=== PATIENT | male | born 1960 | race Caucasian/White ===

== ENCOUNTER 2023-07-05 16:24 | Inpatient (IN) | payer MEDICAID, OTHER ==
[~2023-07-05] VITALS: Ht 177.8 cm; Wt 135.6 kg
[~2023-07-05 16:24] MED LIST: ACET-3207 PO; ASPI-1444 PO; DOCU100C34 PO; FAMO20 PO; FLUO40CA PO; HEPA500018 SQ; INSU100V SQ; METF-1211 PO; OLAN5TAB52 PO; SIMV-260 PO; TAMS0.4C34 PO
[2023-07-05] MEDS ORDERED: OLANZapine 5 MG RAPDIS TABLET PO PRN (18:00)
[2023-07-05] MEDS ORDERED: ZOLPIDEM TARTRATE 10 MG TABLET PO PRN (18:00)
[2023-07-05] MEDS ORDERED: ACET-2247 PO (18:02)
[2023-07-05 19:33] LABS: BASOPHILS % (AUTO) 1.3 % (0.0-2.0); EOSINOPHILS % (AUTO) 2.8 % (1.0-6.0); HEMATOCRIT 38.9 % (41-53); LYMPHOCYTES % (AUTO) 19.8 % (22.0-44.0); MEAN CORPUSCULAR HEMOGLOBIN 29.9 pg (26.0-34.0); MEAN CORPUSCULAR HGB CONC 33.5 G/dL (31.0-37.0); MEAN CORPUSCULAR VOLUME 89 fL (80-100); MONOCYTES # (AUTO) 0.6 K/uL (0.1-1.0); MONOCYTES % (AUTO) 6.4 % (2.0-9.0); NEUTROPHILS # (AUTO) 7.1 K/uL (1.8-7.7); NEUTROPHILS % (AUTO) 69.7 % (40.0-70.0); PLATELET COUNT (AUTO) 351 K/uL (150-450); RED BLOOD CELL COUNT(AUTO) 4.35 MIL/uL (4.50-5.90); RED CELL DISTRIBUTION WIDTH 14.9 % (11.5-14.5); WHITE BLOOD COUNT (AUTO) 10.1 K/uL (4.5-11.0)
[2023-07-05 19:39] LABS: COVID AG,FIA SOURCE NASOPHARYNGEAL
[2023-07-05 19:43] LABS: ANION GAP 9 mmol/L (8-16); CARBON DIOXIDE 28 mmol/L (22-29); CHLORIDE 101 mmol/L (98-107); CREATININE 1.24 mg/dL (0.60-1.30); GLOMERULAR FILTR. RATE CALC 59 mL/min (>60); GLUCOSE,RANDOM 122 mg/dL (70-110); POTASSIUM 3.8 mmol/L (3.5-5.1); SODIUM SERUM 137 mmol/L (136-145); UREA NITROGEN, BLOOD 27 mg/dL (7-18)
[2023-07-05 19:49] LABS: ALANINE AMINOTRANSFERASE 127 U/L (12-78); ALBUMIN 3.8 g/dL (3.4-5.0); ALKALINE PHOSPHATASE 166 U/L (46-116); ASPARTATE AMINOTRANSFERASE 58 U/L (15-37); BILIRUBIN,TOTAL 0.4 mg/dL (0.1-1.0)
[2023-07-05 19:56] LABS: ALCOHOL, BLOOD (SERUM) < 3 mg/dL (0-10)
[2023-07-05 20:09] LABS: SARS-COV2 (COVID) ANTIGEN,FIA Negative (Negative)
[2023-07-05] MEDS: LORazepam 2 MG TABLET PO PRN (20:52)
[2023-07-05] MEDS ORDERED: SITA100 PO (22:35)
[2023-07-05 23:49] LABS: APPEARANCE,URINE CLEAR (CLEAR); BILIRUBIN,URINE NEGATIVE (NEGATIVE); COLOR,URINE LIGHT YELLOW (YELLOW); GLUCOSE, URINE (UA) >=1000 mg/dL (NEGATIVE); KETONES,URINE NEGATIVE (NEGATIVE); LEUKOCYTE ESTERASE ,URINE NEGATIVE (NEGATIVE); NITRATE,URINE NEGATIVE (NEGATIVE); OCCULT BLOOD,URINE NEGATIVE (NEGATIVE); PROTEIN,URINE NEGATIVE (NEGATIVE); SPECIFIC GRAVITIY, URINE 1.035 (1.003-1.030); UROBILINOGEN,URINE <=1.0 mg/dL (<=1.0)
[2023-07-05 23:56] LABS: ALCOHOL, URINE DRUG SCREEN NEGATIVE (NEGATIVE); AMPHET/METH SCREEN,URINE NEGATIVE (NEGATIVE); BARBITURATE SCREEN, URINE NEGATIVE (NEGATIVE); BENZODIAZEPINES SCREEN,URINE NEGATIVE (NEGATIVE); CANNABINOID SCREEN,URINE NEGATIVE (NEGATIVE); COCAINE SCREEN,URINE NEGATIVE (NEGATIVE); METHADONE SCREEN, URINE NEGATIVE (NEGATIVE); OPIATE SCREEN,URINE NEGATIVE (NEGATIVE); PHENCYCLIDINE SCREEN,URINE NEGATIVE (NEGATIVE)
[2023-07-06 00:09] LABS: BACTERIA,URINE None Seen /HPF (None Seen); RBC,URINE None Seen /HPF (0-2); WBC,URINE None Seen /HPF (0-5)
[2023-07-06 00:10] LABS: SQUAMOUS EPITHELIAL CELL,UR None Seen /LPF (None Seen)
[2023-07-06 01:00] VITALS: BP 102/82; PULSE 81; RESP 17; TEMP 97.2; O2SAT 95
[2023-07-06 01:16] LABS: GLUCOMETER DEV NAME(LOC) BV2S.; GLUCOSE,POINT OF CARE 147 MG/DL (70-110)
[2023-07-06 08:39] VITALS: BP 106/76; PULSE 75; RESP 19; TEMP 97.9; O2SAT 98
[2023-07-06] MEDS ORDERED: TUBERCULIN, PURIFIED PROTEIN DERIVATIVE 5 TU/0.1 ML SYRINGE ID ONE (10:45)
[2023-07-06] MEDS ORDERED: PALIPERIDONE PALMITATE 234 MG/1.5 ML SYRINGE IM ONE (10:45)
[2023-07-06] MEDS ORDERED: PROMETHAZINE HCL 25 MG TABLET PO PRN (10:45)
[2023-07-06] MEDS ORDERED: LOPERAMIDE HCL 2 MG CAPSULE PO PRN (10:45)
[2023-07-06] MEDS ORDERED: MAGNESIUM HYDROXIDE SUSPENSION 30 ML UDCUP PO PRN (10:45)
[2023-07-06] MEDS ORDERED: MAG HYDROX/AL HYDROX/SIMETH ES 30 ML SUSPENSION UDCUP PO PRN (10:45)
[2023-07-06] MEDS ORDERED: HydrOXYzine PAMOATE 50 MG CAPSULE PO PRN (10:45)
[2023-07-06] MEDS ORDERED: ACETAMINOPHEN 325 MG TABLET PO PRN (10:45)
[2023-07-06] MEDS ORDERED: GuaiFENesin/D-METHORPHAN [SUGAR-FREE] 200-20MG/10 ML SYRUP UDCUP PO PRN (10:45)
[2023-07-06] MEDS: THIAMINE 100 MG TABLET PO SCH (16:33)
[2023-07-06 17:43] VITALS: BP 105/76; PULSE 78; RESP 18; TEMP 98.2; O2SAT 98
[2023-07-06 20:43] VITALS: BP 113/68; PULSE 88; RESP 18; TEMP 98.3; O2SAT 95
[2023-07-06] MEDS: OLANZapine 5 MG RAPDIS TABLET PO SCH (20:58)
[2023-07-06] MEDS: MELATONIN 5 MG TABLET PO SCH (20:59)
[2023-07-07 08:18] LABS: HEMOGLOBIN A1C 7.3 % (3.8-5.6)
[2023-07-07 08:40] LABS: CHOLESTEROL 204 mg/dL (131-200); FREE T4 (FREE THYROXINE) 0.95 ng/dL (0.76-1.46); HDL CHOLESTEROL 34 mg/dL (40-60); THYROID STIMULATING HORMONE 0.49 uIU/mL (0.36-3.74); TRIGLYCERIDES 464 mg/dL (15-150)
[2023-07-07 08:55] VITALS: BP 116/73; PULSE 71; RESP 18; TEMP 98; O2SAT 93
[2023-07-07] MEDS: OMEGA-3/DHA/EPA/FISH OIL 1,000 MG CAPSULE PO SCH (09:00)
[2023-07-07] MEDS ORDERED: BuPROPion HCL XL 150 MG ER TABLET PO SCH (09:00)
[2023-07-07] MEDS: MULTIVITAMINS WITH MINERALS, THERAPEUTIC TABLET PO SCH (09:43)
[2023-07-07] MEDS: THIAMINE 100 MG TABLET PO SCH ×2 (09:44→17:12)
[2023-07-07] MEDS: FOLIC ACID 1 MG TABLET PO SCH (09:44)
[2023-07-07] MEDS: NALTREXONE HCL 50 MG TABLET PO SCH (09:44)
[2023-07-07] MEDS ORDERED: GLUCAGON,HUMAN RECOMBINANT 1 MG VIAL IM PRN (11:30)
[2023-07-07] MEDS: SitaGLIPtin PHOSPHATE 100 MG TABLET PO SCH (13:34)
[2023-07-07 16:26] LABS: GLUCOMETER DEV NAME(LOC) BV2S.; GLUCOSE,POINT OF CARE 117 MG/DL (70-110)
[2023-07-07] MEDS: MetFORMIN HCL 500 MG TABLET PO SCH (17:12)
[2023-07-07 20:22] VITALS: BP 108/60; PULSE 82; RESP 19; TEMP 97.6; O2SAT 98
[2023-07-07] MEDS: MELATONIN 5 MG TABLET PO SCH (21:54)
[2023-07-07] MEDS: OLANZapine 5 MG RAPDIS TABLET PO SCH (21:54)
[2023-07-07] MEDS: SIMVASTATIN 40 MG TABLET PO SCH (21:57)
[2023-07-07] MEDS: INSULIN LISPRO 100 UNITS/ML SQ PRN (22:07)
[2023-07-07 23:11] LABS: GLUCOMETER DEV NAME(LOC) BV2S.; GLUCOSE,POINT OF CARE 147 MG/DL (70-110)
[2023-07-08 06:11] LABS: GLUCOMETER DEV NAME(LOC) BV2S.; GLUCOSE,POINT OF CARE 133 MG/DL (70-110)
[2023-07-08] MEDS: MetFORMIN HCL 500 MG TABLET PO SCH ×2 (06:49→16:06)
[2023-07-08 08:32] VITALS: BP 119/64; PULSE 77; RESP 16; TEMP 97.7; O2SAT 97
[2023-07-08] MEDS: BuPROPion HCL XL 150 MG ER TABLET PO SCH (09:07)
[2023-07-08] MEDS: FOLIC ACID 1 MG TABLET PO SCH (09:07)
[2023-07-08] MEDS: OMEGA-3/DHA/EPA/FISH OIL 1,000 MG CAPSULE PO SCH (09:07)
[2023-07-08] MEDS: THIAMINE 100 MG TABLET PO SCH ×2 (09:07→16:06)
[2023-07-08] MEDS: MULTIVITAMINS WITH MINERALS, THERAPEUTIC TABLET PO SCH (09:08)
[2023-07-08] MEDS: NALTREXONE HCL 50 MG TABLET PO SCH (09:09)
[2023-07-08] MEDS: SitaGLIPtin PHOSPHATE 100 MG TABLET PO SCH (09:09)
[2023-07-08 11:46] LABS: GLUCOMETER DEV NAME(LOC) BV2S.; GLUCOSE,POINT OF CARE 117 MG/DL (70-110)
[2023-07-08 17:16] LABS: GLUCOMETER DEV NAME(LOC) BV2S.; GLUCOSE,POINT OF CARE 139 MG/DL (70-110)
[2023-07-08 20:46] VITALS: BP 108/76; PULSE 73; RESP 19; TEMP 98; O2SAT 95
[2023-07-08] MEDS: MELATONIN 5 MG TABLET PO SCH (22:15)
[2023-07-08] MEDS: OLANZapine 10 MG RAPDIS TABLET PO SCH (22:15)
[2023-07-08] MEDS: SIMVASTATIN 40 MG TABLET PO SCH (22:16)
[2023-07-09 06:27] LABS: GLUCOMETER DEV NAME(LOC) BV2S.; GLUCOSE,POINT OF CARE 142 MG/DL (70-110)
[2023-07-09] MEDS: MetFORMIN HCL 500 MG TABLET PO SCH ×2 (07:00→17:14)
[2023-07-09] MEDS: INSULIN LISPRO 100 UNITS/ML SQ PRN (07:02)
[2023-07-09 08:53] VITALS: BP 129/72; PULSE 71; RESP 17; TEMP 98.4; O2SAT 99
[2023-07-09] MEDS: THIAMINE 100 MG TABLET PO SCH ×2 (09:39→17:14)
[2023-07-09] MEDS: NALTREXONE HCL 50 MG TABLET PO SCH (09:39)
[2023-07-09] MEDS: SitaGLIPtin PHOSPHATE 100 MG TABLET PO SCH (09:39)
[2023-07-09] MEDS: FOLIC ACID 1 MG TABLET PO SCH (09:39)
[2023-07-09] MEDS: BuPROPion HCL XL 150 MG ER TABLET PO SCH (09:39)
[2023-07-09] MEDS: MULTIVITAMINS WITH MINERALS, THERAPEUTIC TABLET PO SCH (09:39)
[2023-07-09] MEDS: OMEGA-3/DHA/EPA/FISH OIL 1,000 MG CAPSULE PO SCH (09:40)
[2023-07-09 11:16] LABS: GLUCOMETER DEV NAME(LOC) BV2S.; GLUCOSE,POINT OF CARE 111 MG/DL (70-110)
[2023-07-09 16:42] LABS: GLUCOMETER DEV NAME(LOC) BV2S.; GLUCOSE,POINT OF CARE 124 MG/DL (70-110)
[2023-07-09 21:03] VITALS: BP 106/74; PULSE 65; RESP 17; TEMP 98.2; O2SAT 97
[2023-07-09] MEDS: OLANZapine 10 MG RAPDIS TABLET PO SCH (21:39)
[2023-07-09] MEDS: MELATONIN 5 MG TABLET PO SCH (21:39)
[2023-07-09] MEDS: SIMVASTATIN 40 MG TABLET PO SCH (21:39)
[2023-07-10 04:31] LABS: GLUCOMETER DEV NAME(LOC) BV2S.; GLUCOSE,POINT OF CARE 174 MG/DL (70-110)
[2023-07-10 06:26] LABS: GLUCOMETER DEV NAME(LOC) BV2S.; GLUCOSE,POINT OF CARE 144 MG/DL (70-110)
[2023-07-10] MEDS: MetFORMIN HCL 500 MG TABLET PO SCH ×2 (06:47→17:19)
[2023-07-10] MEDS: INSULIN LISPRO 100 UNITS/ML SQ PRN ×2 (06:47→21:17)
[2023-07-10] MEDS ORDERED: PALIPERIDONE PALMITATE 156 MG/ML SYRINGE IM ONE (09:00)
[2023-07-10 09:11] VITALS: BP 134/81; PULSE 95; RESP 20; TEMP 97.9; O2SAT 95
[2023-07-10] MEDS: MULTIVITAMINS WITH MINERALS, THERAPEUTIC TABLET PO SCH (09:13)
[2023-07-10] MEDS: OMEGA-3/DHA/EPA/FISH OIL 1,000 MG CAPSULE PO SCH (09:13)
[2023-07-10] MEDS: NALTREXONE HCL 50 MG TABLET PO SCH (09:13)
[2023-07-10] MEDS: FOLIC ACID 1 MG TABLET PO SCH (09:13)
[2023-07-10] MEDS: THIAMINE 100 MG TABLET PO SCH ×2 (09:14→17:19)
[2023-07-10] MEDS: BuPROPion HCL XL 150 MG ER TABLET PO SCH (09:14)
[2023-07-10] MEDS: SitaGLIPtin PHOSPHATE 100 MG TABLET PO SCH (09:14)
[2023-07-10 15:21] LABS: GLUCOMETER DEV NAME(LOC) BV2S.; GLUCOSE,POINT OF CARE 100 MG/DL (70-110)
[2023-07-10 20:00] VITALS: BP 114/69; PULSE 83; RESP 18; TEMP 97.8; O2SAT 97
[2023-07-10 20:41] LABS: GLUCOMETER DEV NAME(LOC) BV2S.; GLUCOSE,POINT OF CARE 105 MG/DL (70-110)
[2023-07-10] MEDS: SIMVASTATIN 40 MG TABLET PO SCH (21:07)
[2023-07-10] MEDS: MELATONIN 5 MG TABLET PO SCH (21:08)
[2023-07-10] MEDS: OLANZapine 10 MG RAPDIS TABLET PO SCH (21:08)
[2023-07-10 21:51] LABS: GLUCOMETER DEV NAME(LOC) BV2S.; GLUCOSE,POINT OF CARE 156 MG/DL (70-110)
[2023-07-11 06:27] LABS: GLUCOMETER DEV NAME(LOC) BV2S.; GLUCOSE,POINT OF CARE 322 MG/DL (70-110)
[2023-07-11] MEDS: MetFORMIN HCL 500 MG TABLET PO SCH ×2 (06:53→16:12)
[2023-07-11] MEDS: INSULIN LISPRO 100 UNITS/ML SQ PRN (06:53)
[2023-07-11 08:49] VITALS: BP 136/78; PULSE 68; RESP 19; TEMP 97.9; O2SAT 94
[2023-07-11] MEDS: OMEGA-3/DHA/EPA/FISH OIL 1,000 MG CAPSULE PO SCH (09:01)
[2023-07-11] MEDS: MULTIVITAMINS WITH MINERALS, THERAPEUTIC TABLET PO SCH (09:01)
[2023-07-11] MEDS: SitaGLIPtin PHOSPHATE 100 MG TABLET PO SCH (09:01)
[2023-07-11] MEDS: THIAMINE 100 MG TABLET PO SCH ×2 (09:01→16:12)
[2023-07-11] MEDS: BuPROPion HCL XL 150 MG ER TABLET PO SCH (09:01)
[2023-07-11] MEDS: FOLIC ACID 1 MG TABLET PO SCH (09:01)
[2023-07-11] MEDS: NALTREXONE HCL 50 MG TABLET PO SCH (09:03)
[2023-07-11 11:26] LABS: GLUCOMETER DEV NAME(LOC) BV2S.; GLUCOSE,POINT OF CARE 115 MG/DL (70-110)
[2023-07-11 16:45] LABS: GLUCOMETER DEV NAME(LOC) BV2S.; GLUCOSE,POINT OF CARE 124 MG/DL (70-110)
[2023-07-11] MEDS: SIMVASTATIN 40 MG TABLET PO SCH (20:15)
[2023-07-11] MEDS: OLANZapine 10 MG RAPDIS TABLET PO SCH (20:15)
[2023-07-11] MEDS: MELATONIN 5 MG TABLET PO SCH (20:46)
[2023-07-11 21:06] LABS: GLUCOMETER DEV NAME(LOC) BV2S.; GLUCOSE,POINT OF CARE 128 MG/DL (70-110)
[2023-07-11 21:34] VITALS: BP 126/88; PULSE 82; RESP 19; TEMP 98; O2SAT 92
[2023-07-12] VITALS (7 sets, daily range): BP systolic 115–149; BP diastolic 64–79; PULSE 66–99; RESP 17–18; TEMP 97.3–98.2; O2SAT 96–98
[2023-07-12] MEDS: MetFORMIN HCL 500 MG TABLET PO SCH ×2 (06:47→16:58)
[2023-07-12] MEDS: INSULIN LISPRO 100 UNITS/ML SQ PRN ×3 (06:48→20:56)
[2023-07-12] MEDS: FOLIC ACID 1 MG TABLET PO SCH (08:22)
[2023-07-12] MEDS: MULTIVITAMINS WITH MINERALS, THERAPEUTIC TABLET PO SCH (08:22)
[2023-07-12] MEDS: OMEGA-3/DHA/EPA/FISH OIL 1,000 MG CAPSULE PO SCH (08:22)
[2023-07-12] MEDS: NALTREXONE HCL 50 MG TABLET PO SCH (08:23)
[2023-07-12] MEDS: SitaGLIPtin PHOSPHATE 100 MG TABLET PO SCH (08:23)
[2023-07-12] MEDS: BuPROPion HCL XL 150 MG ER TABLET PO SCH (08:23)
[2023-07-12] MEDS: THIAMINE 100 MG TABLET PO SCH ×2 (08:23→16:58)
[2023-07-12 10:01] LABS: GLUCOMETER DEV NAME(LOC) BV2S.; GLUCOSE,POINT OF CARE 205 MG/DL (70-110)
[2023-07-12 13:52] LABS: GLUCOMETER DEV NAME(LOC) BV2S.; GLUCOSE,POINT OF CARE 154 MG/DL (70-110)
[2023-07-12] MEDS ORDERED: OMEG-135 PO (15:37)
[2023-07-12] MEDS ORDERED: NALT50TA PO (15:37)
[2023-07-12] MEDS ORDERED: MELA5TAB40 PO (15:37)
[2023-07-12] MEDS ORDERED: BUPR-49 PO (15:37)
[2023-07-12] MEDS ORDERED: OLAN10TA26 PO (15:37)
[2023-07-12] MEDS ORDERED: METHYL SALICYLATE/MENTHOL 85 GM CREAM TP PRN (15:45)
[2023-07-12 16:42] LABS: GLUCOMETER DEV NAME(LOC) BV2S.; GLUCOSE,POINT OF CARE 108 MG/DL (70-110)
[2023-07-12] MEDS: LORazepam 2 MG TABLET PO PRN (17:22)
[2023-07-12 20:36] LABS: GLUCOMETER DEV NAME(LOC) BV2S.; GLUCOSE,POINT OF CARE 143 MG/DL (70-110)
[2023-07-12] MEDS: MELATONIN 5 MG TABLET PO SCH (20:45)
[2023-07-12] MEDS: OLANZapine 10 MG RAPDIS TABLET PO SCH (20:45)
[2023-07-12] MEDS: SIMVASTATIN 40 MG TABLET PO SCH (20:46)
[2023-07-13 03:06] LABS: HEPATITIS A ANTIBODY IGM Negative (Negative); HEPATITIS B CORE IGM Negative (Negative); HEPATITIS C AB (EIA) Non Reactive (Non Reactive)
[2023-07-13 03:30] VITALS: BP 135/94; PULSE 102; RESP 18; TEMP 98
[2023-07-13] MEDS: MetFORMIN HCL 500 MG TABLET PO SCH (06:22)
[2023-07-13 06:56] LABS: GLUCOMETER DEV NAME(LOC) BV2S.; GLUCOSE,POINT OF CARE 122 MG/DL (70-110)
[2023-07-13 08:54] VITALS: BP 144/87; PULSE 96; RESP 18; TEMP 98.9; O2SAT 97
[2023-07-13] MEDS: THIAMINE 100 MG TABLET PO SCH (09:08)
[2023-07-13] MEDS: FOLIC ACID 1 MG TABLET PO SCH (09:08)
[2023-07-13] MEDS: BuPROPion HCL XL 150 MG ER TABLET PO SCH (09:08)
[2023-07-13] MEDS: MULTIVITAMINS WITH MINERALS, THERAPEUTIC TABLET PO SCH (09:08)
[2023-07-13] MEDS: OMEGA-3/DHA/EPA/FISH OIL 1,000 MG CAPSULE PO SCH (09:08)
[2023-07-13] MEDS: NALTREXONE HCL 50 MG TABLET PO SCH (09:08)
[2023-07-13] MEDS: SitaGLIPtin PHOSPHATE 100 MG TABLET PO SCH (09:08)
[2023-07-13 11:31] LABS: GLUCOMETER DEV NAME(LOC) BV2S.; GLUCOSE,POINT OF CARE 126 MG/DL (70-110)
== END 2023-07-13 14:54 | disposition home or self-care (01) | DRG 750 ==
LOC: EMS 16:24 → B2S 22:58
PROVIDERS: ADMIT Psychiatry & Neurology Psychiatry; ATTEND Psychiatry & Neurology Psychiatry
DX: F25.9 Schizoaffective disorder, unspecified (principal); I50.9 Heart failure, unspecified; R45.850 Homicidal ideations; R45.851 Suicidal ideations; I11.0 Hypertensive heart disease with heart failure; E11.9 Type 2 diabetes mellitus without complications; F17.200 Nicotine dependence, unspecified, uncomplicated; Z20.822 Contact with and (suspected) exposure to COVID-19; F41.0 Panic disorder [episodic paroxysmal anxiety]; F60.0 Paranoid personality disorder; J44.9 Chronic obstructive pulmonary disease, unspecified; N40.0 Benign prostatic hyperplasia without lower urinary tract symptoms; Z55.9 Problems related to education and literacy, unspecified; Z56.0 Unemployment, unspecified; Z59.9 Problem related to housing and economic circumstances, unspecified; Z63.9 Problem related to primary support group, unspecified; Z65.3 Problems related to other legal circumstances; Z91.199 Patient's noncompliance with other medical treatment and regimen due to unspecified reason
CPT/HCPCS: 80053; 80061; 80074; 80307; 81001; 82140; 82962; 83036; 84439; 84443; 85025; 86592; 99285; G0480; Q9967

== ENCOUNTER 2023-07-13 00:27 | Emergency (ER) | payer MEDICAID ==
[~2023-07-13] VITALS: Ht 175.3 cm; Wt 370.0 kg
[~2023-07-13 00:27] MED LIST changes: +ACET-2247 PO; -ACET-3207 PO; +BUPR-49 PO; -DOCU100C34 PO; -HEPA500018 SQ; -INSU100V SQ; +MELA5TAB40 PO; -METF-1211 PO; +NALT50TA PO; +OLAN10TA26 PO; -OLAN5TAB52 PO; +OMEG-135 PO; +SITA100 PO; -TAMS0.4C34 PO
[2023-07-13 00:59] VITALS: TEMP 98.6
[2023-07-13] MEDS ORDERED: IBUPROFEN 400 MG TABLET PO ONE (02:15)
[2023-07-13 03:01] VITALS: BP 130/93; PULSE 107; RESP 20
== END 2023-07-13 03:10 | disposition home or self-care (01) ==
LOC: EMS 00:29
DX: S80.02XA Contusion of left knee, initial encounter (principal); F41.9 Anxiety disorder, unspecified; F31.9 Bipolar disorder, unspecified; E11.9 Type 2 diabetes mellitus without complications; I11.0 Hypertensive heart disease with heart failure; I50.9 Heart failure, unspecified; J44.9 Chronic obstructive pulmonary disease, unspecified; F20.9 Schizophrenia, unspecified; F15.90 Other stimulant use, unspecified, uncomplicated; X58.XXXA Exposure to other specified factors, initial encounter; Y93.89 Activity, other specified; Y92.89 Other specified places as the place of occurrence of the external cause; Y99.8 Other external cause status
CPT/HCPCS: 82962; 99283

== ENCOUNTER 2023-07-21 13:34 | Emergency (ER) | payer MEDICAID ==
[~2023-07-21] VITALS: Ht 170.2 cm; Wt 140.9 kg
[~2023-07-21 13:34] MED LIST changes: -FLUO40CA PO
[2023-07-21 13:37] VITALS: TEMP 98.4
[2023-07-21] MEDS ORDERED: TAMS0.4C34 PO (13:43)
[2023-07-21] MEDS ORDERED: CEPH500C2 PO (13:43)
[2023-07-21] MEDS ORDERED: FURO40TA5 PO (13:43)
[2023-07-21] MEDS ORDERED: CARB-290 AU (13:43)
[2023-07-21] MEDS ORDERED: EMPA10TA3 PO (13:43)
[2023-07-21] MEDS ORDERED: ACET-66 PO (13:43)
[2023-07-21] MEDS ORDERED: ALBU18HF12 IH (13:43)
[2023-07-21] MEDS ORDERED: BLOO-1103 IH (13:43)
[2023-07-21] MEDS ORDERED: GABA-1181 PO (13:43)
[2023-07-21] MEDS ORDERED: CLOP75TA32 PO (13:43)
[2023-07-21] MEDS ORDERED: ATOR40TA71 PO (13:43)
[2023-07-21] MEDS ORDERED: METF-446 PO (13:43)
[2023-07-21] MEDS ORDERED: LISI10TA24 PO (13:43)
[2023-07-21] MEDS ORDERED: METO-408 PO (13:43)
[2023-07-21] MEDS ORDERED: POTA-204 PO (13:43)
[2023-07-21] MEDS ORDERED: INSULIN SQ (13:43)
[2023-07-21 15:27] LABS: BASOPHILS % (AUTO) 1.1 % (0.0-2.0); EOSINOPHILS % (AUTO) 3.4 % (1.0-6.0); HEMOGLOBIN 12.1 g/dL (13.5-17.5); LYMPHOCYTES # (AUTO) 1.4 K/uL (1.0-4.8); MEAN CORPUSCULAR HEMOGLOBIN 29.7 pg (26.0-34.0); MEAN CORPUSCULAR HGB CONC 33.6 G/dL (31.0-37.0); MEAN CORPUSCULAR VOLUME 88 fL (80-100); MONOCYTES # (AUTO) 0.6 K/uL (0.1-1.0); NEUTROPHILS # (AUTO) 5.4 K/uL (1.8-7.7); NEUTROPHILS % (AUTO) 69.5 % (40.0-70.0); PLATELET COUNT (AUTO) 292 K/uL (150-450); RED BLOOD CELL COUNT(AUTO) 4.08 MIL/uL (4.50-5.90); RED CELL DISTRIBUTION WIDTH 14.5 % (11.5-14.5); WHITE BLOOD COUNT (AUTO) 7.8 K/uL (4.5-11.0)
[2023-07-21] MEDS ORDERED: ONDANSETRON HCL 4 MG/2 ML VIAL IVP ONE (15:45)
[2023-07-21] MEDS ORDERED: KETOROLAC TROMETHAMINE 30 MG/ML VIAL IVP ONE (15:45)
[2023-07-21] MEDS ORDERED: ACETAMINOPHEN 500 MG TABLET PO ONE (15:45)
[2023-07-21 15:56] LABS: CALCIUM, TOTAL 9.6 mg/dL (8.8-10.5); CREATININE 1.25 mg/dL (0.60-1.30); POTASSIUM 4.3 mmol/L (3.5-5.1)
[2023-07-21 16:02] LABS: ALBUMIN 3.3 g/dL (3.4-5.0); BILIRUBIN,TOTAL 0.3 mg/dL (0.1-1.0); TOTAL PROTEIN, SERUM 6.9 g/dL (6.4-8.2)
[2023-07-21] MEDS ORDERED: IOHEXOL 350 MG/ML 100 ML VIAL ONE (16:02)
[2023-07-21] MEDS ORDERED: SODIUM CHLORIDE 0.9% 100 ML ONE (16:02)
[2023-07-21 17:53] VITALS: BP 128/85; PULSE 74; RESP 18
== END 2023-07-21 17:55 | disposition home or self-care (01) ==
LOC: EMS 13:34
DX: R10.11 Right upper quadrant pain (principal); F41.9 Anxiety disorder, unspecified; F31.9 Bipolar disorder, unspecified; J44.9 Chronic obstructive pulmonary disease, unspecified; E11.9 Type 2 diabetes mellitus without complications; F20.9 Schizophrenia, unspecified; F15.90 Other stimulant use, unspecified, uncomplicated; I11.0 Hypertensive heart disease with heart failure; I50.9 Heart failure, unspecified
CPT/HCPCS: 99285; 74177; 96374; 76705; 96375; 80053; 82962; 83690; 85025; 36415; J1885; J2405; Q9967; J7050

== ENCOUNTER 2023-07-29 15:38 | Inpatient (IN) | payer MEDICAID ==
[~2023-07-29] VITALS: Ht 175.3 cm; Wt 138.0 kg
[~2023-07-29 15:38] MED LIST changes: -ACET-2247 PO; +ACET-66 PO; +ALBU18HF12 IH; +ATOR40TA71 PO; +BLOO-1103 IH; -BUPR-49 PO; +CARB-290 AU; +CEPH500C2 PO; +CLOP75TA32 PO; +EMPA10TA3 PO; -FAMO20 PO; +FURO40TA5 PO; +GABA-1181 PO; +INSULIN SQ; +LISI10TA24 PO; +METF-446 PO; +METO-408 PO; -NALT50TA PO; -OLAN10TA26 PO; -OMEG-135 PO; +POTA-204 PO; -SIMV-260 PO; -SITA100 PO; +TAMS0.4C34 PO
[2023-07-29 16:01] LABS: BASOPHILS % (AUTO) 1.1 % (0.0-2.0); EOSINOPHILS % (AUTO) 2.2 % (1.0-6.0); HEMATOCRIT 38.5 % (41-53); HEMOGLOBIN 12.7 g/dL (13.5-17.5); LYMPHOCYTES # (AUTO) 1.8 K/uL (1.0-4.8); LYMPHOCYTES % (AUTO) 14.7 % (22.0-44.0); MEAN CORPUSCULAR HEMOGLOBIN 29.7 pg (26.0-34.0); MEAN CORPUSCULAR HGB CONC 33.1 G/dL (31.0-37.0); MEAN CORPUSCULAR VOLUME 90 fL (80-100); MONOCYTES # (AUTO) 0.7 K/uL (0.1-1.0); NEUTROPHILS # (AUTO) 9.1 K/uL (1.8-7.7); PLATELET COUNT (AUTO) 345 K/uL (150-450); RED BLOOD CELL COUNT(AUTO) 4.29 MIL/uL (4.50-5.90); RED CELL DISTRIBUTION WIDTH 14.9 % (11.5-14.5); WHITE BLOOD COUNT (AUTO) 11.9 K/uL (4.5-11.0)
[2023-07-29 16:04] LABS: COVID AG,FIA SOURCE NASAL SWAB
[2023-07-29] MEDS ORDERED: SITA100 PO (16:07)
[2023-07-29] MEDS ORDERED: BECL10.62 IH (16:07)
[2023-07-29] MEDS ORDERED: EMPA10TA3 PO (16:07)
[2023-07-29] MEDS ORDERED: CALC-1124 PO (16:07)
[2023-07-29] MEDS ORDERED: MAGN400T57 PO (16:07)
[2023-07-29] MEDS ORDERED: AMOX1TAB16 PO (16:07)
[2023-07-29] MEDS ORDERED: TIOT185 IH (16:07)
[2023-07-29 16:15] LABS: PH,URINE DRUG SCREEN 5.5 (5.0-8.0)
[2023-07-29 16:18] LABS: ALCOHOL, BLOOD (SERUM) < 3 mg/dL (0-10)
[2023-07-29 16:19] LABS: ANION GAP 12 mmol/L (8-16); CALCIUM, TOTAL 9.7 mg/dL (8.8-10.5); CARBON DIOXIDE 29 mmol/L (22-29); CHLORIDE 96 mmol/L (98-107); CREATININE 1.47 mg/dL (0.60-1.30); GLOMERULAR FILTR. RATE CALC 48 mL/min (>60); GLUCOSE,RANDOM 154 mg/dL (70-110); POTASSIUM 4.3 mmol/L (3.5-5.1); SODIUM SERUM 137 mmol/L (136-145); UREA NITROGEN, BLOOD 36 mg/dL (7-18)
[2023-07-29 16:20] LABS: ALANINE AMINOTRANSFERASE 131 U/L (12-78); ALBUMIN 3.7 g/dL (3.4-5.0); ALKALINE PHOSPHATASE 141 U/L (46-116); ASPARTATE AMINOTRANSFERASE 68 U/L (15-37); BILIRUBIN,TOTAL 0.3 mg/dL (0.1-1.0); TOTAL PROTEIN, SERUM 7.8 g/dL (6.4-8.2)
[2023-07-29 16:21] LABS: ALCOHOL, URINE DRUG SCREEN NEGATIVE (NEGATIVE); AMPHET/METH SCREEN,URINE NEGATIVE (NEGATIVE); BARBITURATE SCREEN, URINE NEGATIVE (NEGATIVE); BENZODIAZEPINES SCREEN,URINE NEGATIVE (NEGATIVE); CANNABINOID SCREEN,URINE NEGATIVE (NEGATIVE); COCAINE SCREEN,URINE NEGATIVE (NEGATIVE); METHADONE SCREEN, URINE NEGATIVE (NEGATIVE); OPIATE SCREEN,URINE NEGATIVE (NEGATIVE); PHENCYCLIDINE SCREEN,URINE NEGATIVE (NEGATIVE)
[2023-07-29 16:30] LABS: SARS-COV2 (COVID) ANTIGEN,FIA Negative (Negative)
[2023-07-29] MEDS ORDERED: GuaiFENesin/D-METHORPHAN [SUGAR-FREE] 200-20MG/10 ML SYRUP UDCUP PO PRN (18:15)
[2023-07-29] MEDS ORDERED: TUBERCULIN, PURIFIED PROTEIN DERIVATIVE 5 TU/0.1 ML SYRINGE ID ONE (18:15)
[2023-07-29] MEDS ORDERED: HydrOXYzine PAMOATE 50 MG CAPSULE PO PRN (18:15)
[2023-07-29] MEDS ORDERED: PROMETHAZINE HCL 25 MG TABLET PO PRN (18:15)
[2023-07-29] MEDS ORDERED: OLANZapine 5 MG RAPDIS TABLET PO PRN (18:15)
[2023-07-29] MEDS ORDERED: LORazepam 2 MG TABLET PO PRN (18:15)
[2023-07-29] MEDS ORDERED: MAG HYDROX/AL HYDROX/SIMETH ES 30 ML SUSPENSION UDCUP PO PRN (18:15)
[2023-07-29] MEDS ORDERED: MAGNESIUM HYDROXIDE SUSPENSION 30 ML UDCUP PO PRN (18:15)
[2023-07-29] MEDS ORDERED: LOPERAMIDE HCL 2 MG CAPSULE PO PRN (18:15)
[2023-07-29] MEDS: MELATONIN 5 MG TABLET PO SCH (21:02)
[2023-07-29] MEDS: OLANZapine 5 MG RAPDIS TABLET PO SCH (21:03)
[2023-07-29] MEDS: THIAMINE 100 MG TABLET PO SCH (21:03)
[2023-07-29 23:01] VITALS: BP 131/84; PULSE 71; RESP 20; TEMP 97.1
[2023-07-29] MEDS: ZOLPIDEM TARTRATE 10 MG TABLET PO PRN (23:01)
[2023-07-29 23:02] VITALS: BP 131/84; PULSE 71; RESP 20; TEMP 97.1; O2SAT 94
[2023-07-30 08:00] VITALS: BP 151/83; PULSE 74; RESP 17; TEMP 97.7
[2023-07-30] MEDS ORDERED: DEXTROSE 50%-WATER 25 GM/50 ML SYRINGE IVP PRN (10:45)
[2023-07-30] MEDS: SitaGLIPtin PHOSPHATE 100 MG TABLET PO SCH (11:40)
[2023-07-30] MEDS: CLOPIDOGREL BISULFATE 75 MG TABLET PO SCH (11:40)
[2023-07-30] MEDS: EMPAGLIFLOZIN 10 MG TABLET PO SCH (11:40)
[2023-07-30] MEDS: MULTIVITAMINS WITH MINERALS, THERAPEUTIC TABLET PO SCH (11:41)
[2023-07-30] MEDS: THIAMINE 100 MG TABLET PO SCH ×2 (11:41→17:51)
[2023-07-30] MEDS: FOLIC ACID 1 MG TABLET PO SCH (11:41)
[2023-07-30] MEDS: BuPROPion HCL XL 150 MG ER TABLET PO SCH (11:41)
[2023-07-30] MEDS: NALTREXONE HCL 50 MG TABLET PO SCH (11:41)
[2023-07-30] MEDS: TIOTROPIUM BROMIDE 18 MCG/INH HANDIHALER [5] IH SCH (11:42)
[2023-07-30] MEDS: TAMSULOSIN HCL 0.4 MG CAPSULE PO SCH (11:43)
[2023-07-30] MEDS: OMEGA-3/DHA/EPA/FISH OIL 1,000 MG CAPSULE PO SCH (11:44)
[2023-07-30] MEDS: METOPROLOL SUCCINATE 25 MG ER TABLET PO SCH (11:46)
[2023-07-30] MEDS: LISINOPRIL 10 MG TABLET PO SCH (11:46)
[2023-07-30] MEDS: INSULIN LISPRO 100 UNITS/ML SQ PRN ×3 (11:56→21:42)
[2023-07-30 12:06] LABS: GLUCOMETER DEV NAME(LOC) 3E.C; GLUCOSE,POINT OF CARE 135 MG/DL (70-110)
[2023-07-30 14:08] VITALS: BP 128/60; PULSE 63; RESP 20; TEMP 98
[2023-07-30] MEDS: ACETAMINOPHEN 325 MG TABLET PO PRN (14:11)
[2023-07-30 16:56] LABS: GLUCOMETER DEV NAME(LOC) 3E.C; GLUCOSE,POINT OF CARE 173 MG/DL (70-110)
[2023-07-30] MEDS: BECLOMETHASONE DIPR HFA 80 MCG/PUFF 10.6 GM INHALER IH SCH (17:49)
[2023-07-30] MEDS: FUROSEMIDE 40 MG TABLET PO SCH (17:51)
[2023-07-30] MEDS ORDERED: ALBUTEROL SULFATE HFA 90 MCG/PUFF 8 GM INHALER IH PRN (20:15)
[2023-07-30] MEDS ORDERED: ALBUTEROL SULFATE 2.5 MG/0.5 ML NEB SOLUTION NEB PRN (20:15)
[2023-07-30] MEDS ORDERED: ATOR40TA71 PO (20:26)
[2023-07-30] MEDS ORDERED: TIOT4MIS2 IH (20:26)
[2023-07-30] MEDS ORDERED: METF-446 PO (20:26)
[2023-07-30 20:27] VITALS: BP 108/70; PULSE 73; RESP 18; TEMP 97.8
[2023-07-30] MEDS: OLANZapine 5 MG RAPDIS TABLET PO SCH (21:24)
[2023-07-30] MEDS: MELATONIN 5 MG TABLET PO SCH (21:24)
[2023-07-30 21:31] LABS: GLUCOMETER DEV NAME(LOC) 3E.C; GLUCOSE,POINT OF CARE 150 MG/DL (70-110)
[2023-07-31 05:36] LABS: GLUCOMETER DEV NAME(LOC) 3E.C; GLUCOSE,POINT OF CARE 151 MG/DL (70-110)
[2023-07-31] MEDS: INSULIN LISPRO 100 UNITS/ML SQ PRN ×4 (07:03→21:59)
[2023-07-31] MEDS: METOPROLOL SUCCINATE 25 MG ER TABLET PO SCH ×2 (09:00→09:34)
[2023-07-31] MEDS: FUROSEMIDE 40 MG TABLET PO SCH ×3 (09:00→16:16)
[2023-07-31] MEDS: LISINOPRIL 10 MG TABLET PO SCH ×2 (09:00→09:33)
[2023-07-31] MEDS: CALCIUM CARBONATE 500 MG CHEWABLE TABLET CHEW SCH (09:29)
[2023-07-31] MEDS: SitaGLIPtin PHOSPHATE 100 MG TABLET PO SCH (09:30)
[2023-07-31] MEDS: CLOPIDOGREL BISULFATE 75 MG TABLET PO SCH (09:30)
[2023-07-31] MEDS: EMPAGLIFLOZIN 10 MG TABLET PO SCH (09:30)
[2023-07-31] MEDS: OMEGA-3/DHA/EPA/FISH OIL 1,000 MG CAPSULE PO SCH (09:31)
[2023-07-31] MEDS: THIAMINE 100 MG TABLET PO SCH ×2 (09:32→17:30)
[2023-07-31] MEDS: FOLIC ACID 1 MG TABLET PO SCH (09:32)
[2023-07-31] MEDS: ASPIRIN 81 MG DR TABLET PO SCH (09:32)
[2023-07-31] MEDS: PredniSONE 20 MG TABLET PO SCH (09:32)
[2023-07-31] MEDS: MULTIVITAMINS WITH MINERALS, THERAPEUTIC TABLET PO SCH (09:33)
[2023-07-31] MEDS: TAMSULOSIN HCL 0.4 MG CAPSULE PO SCH (09:33)
[2023-07-31] MEDS: NALTREXONE HCL 50 MG TABLET PO SCH (09:33)
[2023-07-31] MEDS: BuPROPion HCL XL 150 MG ER TABLET PO SCH (09:33)
[2023-07-31] MEDS: TIOTROPIUM BROMIDE 18 MCG/INH HANDIHALER [5] IH SCH (09:35)
[2023-07-31] MEDS: BECLOMETHASONE DIPR HFA 80 MCG/PUFF 10.6 GM INHALER IH SCH ×2 (09:37→16:15)
[2023-07-31 09:44] VITALS: BP 105/64; PULSE 68; RESP 18; TEMP 97.2
[2023-07-31] MEDS: MAGNESIUM OXIDE 400 MG TABLET PO SCH (09:44)
[2023-07-31 11:37] LABS: GLUCOMETER DEV NAME(LOC) 3E.C; GLUCOSE,POINT OF CARE 134 MG/DL (70-110)
[2023-07-31 14:47] VITALS: BP 102/64; PULSE 77
[2023-07-31 16:26] LABS: GLUCOMETER DEV NAME(LOC) 3E.C; GLUCOSE,POINT OF CARE 259 MG/DL (70-110)
[2023-07-31] MEDS: OLANZapine 5 MG RAPDIS TABLET PO SCH (20:05)
[2023-07-31] MEDS: MELATONIN 5 MG TABLET PO SCH (20:05)
[2023-07-31] MEDS: ZOLPIDEM TARTRATE 10 MG TABLET PO PRN (20:35)
[2023-07-31 23:17] VITALS: BP 130/65; PULSE 84; TEMP 98.4
[2023-08-01 00:13] LABS: GLUCOMETER DEV NAME(LOC) 3E.C; GLUCOSE,POINT OF CARE 145 MG/DL (70-110)
[2023-08-01] MEDS: INSULIN LISPRO 100 UNITS/ML SQ PRN ×4 (06:33→21:25)
[2023-08-01 07:12] LABS: GLUCOMETER DEV NAME(LOC) 3E.C; GLUCOSE,POINT OF CARE 143 MG/DL (70-110)
[2023-08-01] MEDS: SitaGLIPtin PHOSPHATE 100 MG TABLET PO SCH (09:09)
[2023-08-01] MEDS: CALCIUM CARBONATE 500 MG CHEWABLE TABLET CHEW SCH (09:09)
[2023-08-01] MEDS: BECLOMETHASONE DIPR HFA 80 MCG/PUFF 10.6 GM INHALER IH SCH ×2 (09:09→17:23)
[2023-08-01] MEDS: CLOPIDOGREL BISULFATE 75 MG TABLET PO SCH (09:09)
[2023-08-01] MEDS: TIOTROPIUM BROMIDE 18 MCG/INH HANDIHALER [5] IH SCH (09:09)
[2023-08-01] MEDS: EMPAGLIFLOZIN 10 MG TABLET PO SCH (09:09)
[2023-08-01] MEDS: FUROSEMIDE 40 MG TABLET PO SCH ×2 (09:20→17:23)
[2023-08-01] MEDS: METOPROLOL SUCCINATE 25 MG ER TABLET PO SCH (09:22)
[2023-08-01] MEDS: TAMSULOSIN HCL 0.4 MG CAPSULE PO SCH (09:22)
[2023-08-01] MEDS: FOLIC ACID 1 MG TABLET PO SCH (09:22)
[2023-08-01] MEDS: OMEGA-3/DHA/EPA/FISH OIL 1,000 MG CAPSULE PO SCH (09:22)
[2023-08-01] MEDS: MULTIVITAMINS WITH MINERALS, THERAPEUTIC TABLET PO SCH (09:22)
[2023-08-01] MEDS: THIAMINE 100 MG TABLET PO SCH ×2 (09:22→17:23)
[2023-08-01] MEDS: ASPIRIN 81 MG DR TABLET PO SCH (09:22)
[2023-08-01] MEDS: PredniSONE 20 MG TABLET PO SCH (09:22)
[2023-08-01] MEDS: NALTREXONE HCL 50 MG TABLET PO SCH (09:23)
[2023-08-01] MEDS: LISINOPRIL 10 MG TABLET PO SCH (09:23)
[2023-08-01] MEDS: MAGNESIUM OXIDE 400 MG TABLET PO SCH (09:23)
[2023-08-01] MEDS: BuPROPion HCL XL 150 MG ER TABLET PO SCH (09:23)
[2023-08-01 10:13] VITALS: BP 117/80; PULSE 80; RESP 18; TEMP 97.1
[2023-08-01 12:16] LABS: GLUCOMETER DEV NAME(LOC) 3E.C; GLUCOSE,POINT OF CARE 194 MG/DL (70-110)
[2023-08-01 14:10] VITALS: BP 116/76; PULSE 76; RESP 17; TEMP 97
[2023-08-01] MEDS: ACETAMINOPHEN 325 MG TABLET PO PRN (14:10)
[2023-08-01 15:10] VITALS: BP 118/76; PULSE 76; RESP 17; TEMP 97.6
[2023-08-01 17:32] LABS: GLUCOMETER DEV NAME(LOC) 3E.C; GLUCOSE,POINT OF CARE 228 MG/DL (70-110)
[2023-08-01] MEDS: ZOLPIDEM TARTRATE 10 MG TABLET PO PRN (21:09)
[2023-08-01] MEDS: MELATONIN 5 MG TABLET PO SCH (21:09)
[2023-08-01] MEDS: OLANZapine 5 MG RAPDIS TABLET PO SCH (21:09)
[2023-08-01 21:43] LABS: GLUCOMETER DEV NAME(LOC) 3E.C; GLUCOSE,POINT OF CARE 278 MG/DL (70-110)
[2023-08-01 22:11] VITALS: BP 100/64; PULSE 68; RESP 18; TEMP 98
[2023-08-02] MEDS: INSULIN LISPRO 100 UNITS/ML SQ PRN ×3 (06:46→21:45)
[2023-08-02 07:27] LABS: GLUCOMETER DEV NAME(LOC) 3E.C; GLUCOSE,POINT OF CARE 129 MG/DL (70-110)
[2023-08-02 08:00] VITALS: BP 106/63; PULSE 63; RESP 19; TEMP 97.2
[2023-08-02] MEDS: FOLIC ACID 1 MG TABLET PO SCH (11:41)
[2023-08-02] MEDS: NALTREXONE HCL 50 MG TABLET PO SCH (11:41)
[2023-08-02] MEDS: BuPROPion HCL XL 150 MG ER TABLET PO SCH (11:41)
[2023-08-02] MEDS: EMPAGLIFLOZIN 10 MG TABLET PO SCH (11:43)
[2023-08-02] MEDS: TAMSULOSIN HCL 0.4 MG CAPSULE PO SCH (11:43)
[2023-08-02] MEDS: MULTIVITAMINS WITH MINERALS, THERAPEUTIC TABLET PO SCH (11:43)
[2023-08-02] MEDS: LISINOPRIL 10 MG TABLET PO SCH (11:43)
[2023-08-02] MEDS: METOPROLOL SUCCINATE 25 MG ER TABLET PO SCH (11:43)
[2023-08-02] MEDS: CLOPIDOGREL BISULFATE 75 MG TABLET PO SCH (11:43)
[2023-08-02] MEDS: CALCIUM CARBONATE 500 MG CHEWABLE TABLET CHEW SCH (11:43)
[2023-08-02] MEDS: THIAMINE 100 MG TABLET PO SCH ×2 (11:43→16:16)
[2023-08-02] MEDS: SitaGLIPtin PHOSPHATE 100 MG TABLET PO SCH (11:43)
[2023-08-02] MEDS: OMEGA-3/DHA/EPA/FISH OIL 1,000 MG CAPSULE PO SCH (11:43)
[2023-08-02] MEDS: BECLOMETHASONE DIPR HFA 80 MCG/PUFF 10.6 GM INHALER IH SCH ×2 (11:44→16:16)
[2023-08-02] MEDS: PredniSONE 20 MG TABLET PO SCH (11:44)
[2023-08-02] MEDS: ASPIRIN 81 MG DR TABLET PO SCH (11:44)
[2023-08-02] MEDS: TIOTROPIUM BROMIDE 18 MCG/INH HANDIHALER [5] IH SCH (11:44)
[2023-08-02] MEDS: FUROSEMIDE 40 MG TABLET PO SCH ×2 (11:45→16:16)
[2023-08-02] MEDS: MAGNESIUM OXIDE 400 MG TABLET PO SCH (11:45)
[2023-08-02 11:56] LABS: GLUCOMETER DEV NAME(LOC) 3E.C; GLUCOSE,POINT OF CARE 118 MG/DL (70-110)
[2023-08-02 16:25] LABS: GLUCOMETER DEV NAME(LOC) 3E.C; GLUCOSE,POINT OF CARE 202 MG/DL (70-110)
[2023-08-02 20:57] LABS: GLUCOMETER DEV NAME(LOC) 3E.C; GLUCOSE,POINT OF CARE 255 MG/DL (70-110)
[2023-08-02] MEDS: ZOLPIDEM TARTRATE 10 MG TABLET PO PRN (21:11)
[2023-08-02] MEDS: OLANZapine 5 MG RAPDIS TABLET PO SCH (21:11)
[2023-08-02] MEDS: MELATONIN 5 MG TABLET PO SCH (21:11)
[2023-08-02 21:23] VITALS: BP 100/67; PULSE 68; RESP 18; TEMP 98
[2023-08-03 05:40] VITALS: BP 120/72; PULSE 79; RESP 18; TEMP 97.5
[2023-08-03] MEDS: ACETAMINOPHEN 325 MG TABLET PO PRN (05:49)
[2023-08-03 06:23] LABS: CHOL/HDL RATIO 5.7 (4.2-7.3)
[2023-08-03 06:26] LABS: GLUCOMETER DEV NAME(LOC) 3E.C; GLUCOSE,POINT OF CARE 134 MG/DL (70-110)
[2023-08-03 06:38] LABS: HEMOGLOBIN A1C 7.2 % (3.8-5.6)
[2023-08-03] MEDS: INSULIN LISPRO 100 UNITS/ML SQ PRN ×4 (06:43→21:30)
[2023-08-03 06:49] VITALS: RESP 19
[2023-08-03 08:00] VITALS: BP 116/73; PULSE 62; RESP 18; TEMP 98
[2023-08-03] MEDS: BECLOMETHASONE DIPR HFA 80 MCG/PUFF 10.6 GM INHALER IH SCH ×2 (08:58→17:25)
[2023-08-03] MEDS: CALCIUM CARBONATE 500 MG CHEWABLE TABLET CHEW SCH (08:58)
[2023-08-03] MEDS: EMPAGLIFLOZIN 10 MG TABLET PO SCH (08:58)
[2023-08-03] MEDS: SitaGLIPtin PHOSPHATE 100 MG TABLET PO SCH (08:58)
[2023-08-03] MEDS: TIOTROPIUM BROMIDE 18 MCG/INH HANDIHALER [5] IH SCH (08:58)
[2023-08-03] MEDS: CLOPIDOGREL BISULFATE 75 MG TABLET PO SCH (08:59)
[2023-08-03] MEDS: BuPROPion HCL XL 150 MG ER TABLET PO SCH (09:03)
[2023-08-03] MEDS: FOLIC ACID 1 MG TABLET PO SCH (09:03)
[2023-08-03] MEDS: OMEGA-3/DHA/EPA/FISH OIL 1,000 MG CAPSULE PO SCH (09:03)
[2023-08-03] MEDS: THIAMINE 100 MG TABLET PO SCH ×2 (09:04→17:24)
[2023-08-03] MEDS: LISINOPRIL 10 MG TABLET PO SCH (09:04)
[2023-08-03] MEDS: TAMSULOSIN HCL 0.4 MG CAPSULE PO SCH (09:04)
[2023-08-03] MEDS: NALTREXONE HCL 50 MG TABLET PO SCH (09:04)
[2023-08-03] MEDS: FUROSEMIDE 40 MG TABLET PO SCH ×2 (09:04→17:24)
[2023-08-03] MEDS: ASPIRIN 81 MG DR TABLET PO SCH (09:04)
[2023-08-03] MEDS: METOPROLOL SUCCINATE 25 MG ER TABLET PO SCH (09:04)
[2023-08-03] MEDS: MAGNESIUM OXIDE 400 MG TABLET PO SCH (09:05)
[2023-08-03] MEDS: MULTIVITAMINS WITH MINERALS, THERAPEUTIC TABLET PO SCH (09:06)
[2023-08-03 11:46] LABS: GLUCOMETER DEV NAME(LOC) 3E.C; GLUCOSE,POINT OF CARE 164 MG/DL (70-110)
[2023-08-03 16:30] LABS: GLUCOMETER DEV NAME(LOC) 3E.C; GLUCOSE,POINT OF CARE 177 MG/DL (70-110)
[2023-08-03] MEDS ORDERED: BUPR-49 PO (17:16)
[2023-08-03] MEDS ORDERED: MELA5TAB40 PO (17:16)
[2023-08-03] MEDS ORDERED: OMEG-135 PO (17:16)
[2023-08-03] MEDS ORDERED: OLAN5TAB94 PO (17:16)
[2023-08-03] MEDS ORDERED: NALT50TA PO (17:16)
[2023-08-03] MEDS ORDERED: GABAPENTIN 300 MG CAPSULE PO PRN (17:30)
[2023-08-03] MEDS: MELATONIN 5 MG TABLET PO SCH (20:55)
[2023-08-03] MEDS: OLANZapine 5 MG RAPDIS TABLET PO SCH (20:55)
[2023-08-03 21:01] LABS: GLUCOMETER DEV NAME(LOC) 3E.C; GLUCOSE,POINT OF CARE 185 MG/DL (70-110)
[2023-08-03] MEDS: ZOLPIDEM TARTRATE 10 MG TABLET PO PRN (21:37)
[2023-08-03 21:38] VITALS: BP 104/66; PULSE 63; RESP 18; TEMP 97.7
[2023-08-04 06:26] LABS: GLUCOMETER DEV NAME(LOC) 3E.C; GLUCOSE,POINT OF CARE 167 MG/DL (70-110)
[2023-08-04] MEDS: INSULIN LISPRO 100 UNITS/ML SQ PRN (06:35)
[2023-08-04] MEDS: THIAMINE 100 MG TABLET PO SCH (08:46)
[2023-08-04] MEDS: NALTREXONE HCL 50 MG TABLET PO SCH (08:46)
[2023-08-04] MEDS: BuPROPion HCL XL 150 MG ER TABLET PO SCH (08:46)
[2023-08-04] MEDS: MULTIVITAMINS WITH MINERALS, THERAPEUTIC TABLET PO SCH (08:46)
[2023-08-04] MEDS: LISINOPRIL 10 MG TABLET PO SCH (08:46)
[2023-08-04] MEDS: BECLOMETHASONE DIPR HFA 80 MCG/PUFF 10.6 GM INHALER IH SCH (08:46)
[2023-08-04] MEDS: TIOTROPIUM BROMIDE 18 MCG/INH HANDIHALER [5] IH SCH (08:46)
[2023-08-04] MEDS: METOPROLOL SUCCINATE 25 MG ER TABLET PO SCH (08:47)
[2023-08-04] MEDS: FUROSEMIDE 40 MG TABLET PO SCH (08:47)
[2023-08-04] MEDS: SitaGLIPtin PHOSPHATE 100 MG TABLET PO SCH (08:47)
[2023-08-04] MEDS: EMPAGLIFLOZIN 10 MG TABLET PO SCH (08:47)
[2023-08-04] MEDS: TAMSULOSIN HCL 0.4 MG CAPSULE PO SCH (08:47)
[2023-08-04] MEDS: CLOPIDOGREL BISULFATE 75 MG TABLET PO SCH (08:47)
[2023-08-04] MEDS: MAGNESIUM OXIDE 400 MG TABLET PO SCH (08:47)
[2023-08-04] MEDS: FOLIC ACID 1 MG TABLET PO SCH (08:47)
[2023-08-04] MEDS: CALCIUM CARBONATE 500 MG CHEWABLE TABLET CHEW SCH (08:47)
[2023-08-04] MEDS: ASPIRIN 81 MG DR TABLET PO SCH (08:48)
[2023-08-04] MEDS: OMEGA-3/DHA/EPA/FISH OIL 1,000 MG CAPSULE PO SCH (09:26)
[2023-08-04 11:15] VITALS: BP 107/68; PULSE 65; RESP 18; TEMP 97.5
[2023-08-04 11:41] LABS: GLUCOMETER DEV NAME(LOC) 3E.C; GLUCOSE,POINT OF CARE 133 MG/DL (70-110)
== END 2023-08-04 15:20 | disposition home or self-care (01) | DRG 750 ==
LOC: EMS 16:11 → 3EI 22:35
PROVIDERS: ADMIT Psychiatry & Neurology Psychiatry; ATTEND Psychiatry & Neurology Psychiatry
DX: F25.1 Schizoaffective disorder, depressive type (principal); E11.22 Type 2 diabetes mellitus with diabetic chronic kidney disease; R45.851 Suicidal ideations; I13.0 Hypertensive heart and chronic kidney disease with heart failure and stage 1 through stage 4 chronic kidney disease, or unspecified chronic kidney disease; I50.9 Heart failure, unspecified; D64.9 Anemia, unspecified; D72.829 Elevated white blood cell count, unspecified; Z20.822 Contact with and (suspected) exposure to COVID-19; F19.20 Other psychoactive substance dependence, uncomplicated; E78.5 Hyperlipidemia, unspecified; G89.29 Other chronic pain; K21.9 Gastro-esophageal reflux disease without esophagitis; I25.10 Atherosclerotic heart disease of native coronary artery without angina pectoris; F17.200 Nicotine dependence, unspecified, uncomplicated; F41.9 Anxiety disorder, unspecified; N40.0 Benign prostatic hyperplasia without lower urinary tract symptoms; F31.9 Bipolar disorder, unspecified; N18.9 Chronic kidney disease, unspecified; J44.9 Chronic obstructive pulmonary disease, unspecified; Z79.01 Long term (current) use of anticoagulants; Z79.899 Other long term (current) drug therapy; Z79.84 Long term (current) use of oral hypoglycemic drugs; Z91.148 Patient's other noncompliance with medication regimen for other reason
CPT/HCPCS: 80053; 80061; 80307; 82962; 83036; 85025; 87081; 99285; G0480; J3535; Q9967